=== PATIENT | male | born 1995 | race Caucasian/White ===

== ENCOUNTER 2018-11-08 04:06 | Emergency (ER) | payer BC ==
--- NOTE | 2018-11-08 04:16 | EDPHY ---
H & P Stated Complaint: med clear Time Seen by Provider: 11/08/18 04:11 HPI/ROS: HPI The patient presents with police for medical clearance for fci. The patient is a type 1 diabetic and wears an insulin pump at all times. Blood glucose was elevated in the field. Here it is 290. He says he is not surprised that this elevation because of alcohol use tonight. He knows that his insulin pump is working. He says his blood sugars have been in the 200s recently. He does have a history of DKA. REVIEW OF SYSTEMS 10 systems were reviewed and negative with the exception of the elements mentioned in the history of present illness. PMHx: Type 1 diabetes, celiac disease Soc Hx: Currently being arrested by police PHYSICAL General Appearance: Alert, no distress Eyes: Pupils equal and round no pallor or injection ENT, Mouth: Mucous membranes moist Respiratory: There are no retractions, lungs are clear to auscultation Cardiovascular: Regular rate and rhythm Gastrointestinal: Abdomen is soft and non-tender, no masses, bowel sounds normal Neurological: A&O, moves all extremities Skin: Warm and dry, no rashes Musculoskeletal: Neck is supple non tender Extremities: symmetrical, full range of motion Psychiatric: Patient is oriented X 3, there is no agitation Source: Patient Exam Limitations: No limitations - Personal History Current Tetanus/Diphtheria Vaccine: Yes - Medical/Surgical History Hx Asthma: No Hx Chronic Respiratory Disease: No Hx Diabetes: Yes Hx Cardiac Disease: No Hx Renal Disease: No Hx Cirrhosis: No Hx Alcoholism: No Hx HIV/AIDS: No Hx Splenectomy or Spleen Trauma: No Other PMH: celiac disease.DM. - Social History Smoking Status: Never smoked Constitutional: Initial Vital Signs Temperature (C) 36.5 C 11/08/18 04:10 Heart Rate 89 11/08/18 04:10 Respiratory Rate 20 11/08/18 04:10 Blood Pressure 148/115 H 11/08/18 04:10 O2 Sat (%) 94 11/08/18 04:10 O2 Delivery Mode Room Air Allergies/Adverse Reactions: gluten Allergy (Verified 11/08/18 04:11) Home Medications: Medication Instructions Recorded Subcutaneous Insulin Pump [Minimed 1 each MC DAILY 03/07/14 530G] Medical Decision Making Differential Diagnosis: 23-year-old male with type 1 diabetes, insulin pump in place, presents for medical clearance for fci with blood glucose level of 290. There is no sign of significant infection, DKA, altered mental status. He is medically cleared for fci. - Data Points Laboratory Results: 11/08/18 04:13 POC Glucose 290 mg/dL H mg/dL (70-100) Point of Care Test Results: Chemistry 11/08/18 04:13 POC Glucose 290 mg/dL H mg/dL (70-100) Departure - Departure Disposition: Home, Routine, Self-Care Clinical Impression: Medical clearance for incarceration, Hyperglycemia due to type 1 diabetes mellitus Condition: Good Instructions: Diabetic Hyperglycemia (ED) Additional Instructions: Please make sure to monitor your blood glucose levels within the next few days. You're medically clear for fci. Referrals: NONE *PRIMARY CARE P,. [Primary Care Provider] - As per Instructions
[2018-11-08 04:21] VITALS: BP 148/115
== END 2018-11-08 04:24 | disposition home or self-care (01) ==
DX: Z02.89 Encounter for other administrative examinations (principal); E10.65 Type 1 diabetes mellitus with hyperglycemia; K90.0 Celiac disease